=== PATIENT | female | born 1955 | race Caucasian/White ===

== ENCOUNTER 2021-11-23 12:51 | Outpatient (CLI) | payer MEDICARE, SELFPAY ==
--- NOTE | ~2021-11-23 | US_ITS ---
EXAMINATION: US soft tissue groin RT DATE: 11/23/2021 13:56 INDICATION: RIGHT INGUINAL HERNIA, WO OBSTRUCTION OR GANGRENE . TECHNIQUE: Grayscale and Doppler ultrasound images of the right groinwere obtained. COMPARISON: None. FINDINGS: There is some herniated fat as well a 5 cm long peristalsing loop of bowel extending into a hernia at the right groin. The hernia sac and contacts along the femoral vasculature and would favor a femoral hernia over inguinal hernia. IMPRESSION: Loop of peristalsing bowel within a hernia at the right groin and favor femoral hernia over inguinal hernia. Reviewed, dictated and finalized at location K.
== END 2021-11-23 12:52 | disposition home or self-care (01) ==
LOC: ANHIMG 12:58
PROVIDERS: PCP Nurse Practitioner Obstetrics & Gynecology; Visit Provider Nurse Practitioner Obstetrics & Gynecology
DX: K40.90 Unilateral inguinal hernia, without obstruction or gangrene, not specified as recurrent (principal)
CPT/HCPCS: 76882

== ENCOUNTER 2022-08-18 10:16 | Outpatient (CLI) | payer MEDICARE, SELFPAY ==
--- NOTE | 2022-08-18 10:21 | ECG_ITS ---
Measurements Intervals [place] Rate: 77 P: -75 [place]: 227 QRS: 61 QRSD: 86 T: 52 QT: 355 QTc: 402 Interpretive Statements SINUS RHYTHM BASELINE ARTIFACT- I, II, III, AVR, AVL, AVF, V1-V6 NORMAL ECG NO PREVIOUS ECG AVAILABLE FOR COMPARISON Electronically Signed On 08-18-2022 11:56:02 CDT by Dwain Vazquez D.O.
[2022-08-18 11:05] LABS: Anion Gap 9 mmol/L (8-16); Blood Urea Nitrogen 10 mg/dL (7-17); Calcium 9.2 mg/dL (8.4-10.2); Carbon Dioxide 26 mmol/L (22-30); Chloride 98 mmol/L (98-107); Estimated Glomerular Filt Rate > 60; Glucose 80 mg/dL (65-110); Sodium 133 mmol/L (137-145)
== END 2022-08-18 10:17 | disposition home or self-care (01) ==
LOC: ANHSURGERY 10:21
PROVIDERS: Anesthesiology; PCP Internal Medicine; Visit Provider Surgery
DX: Z51.81 Encounter for therapeutic drug level monitoring (principal); K40.90 Unilateral inguinal hernia, without obstruction or gangrene, not specified as recurrent; I10 Essential (primary) hypertension; Z01.818 Encounter for other preprocedural examination
CPT/HCPCS: 36415; 80048; 86850; 86900; 86901; 93005

== ENCOUNTER 2022-09-06 01:07 | Day surgery (SDC) | payer MEDICARE, SELFPAY ==
[2022-08-16 13:49] VITALS: BMI 16.6
--- NOTE | 2022-08-16 14:18 | PC.NURSE ---
Report to the Outpatient Waiting Room, entrance under the green pavilion located off [facility], at time _11:30AM on date __08/23/22 . Planned Procedure Time: __1:30PM . Time changes happen often and if your time is changed the preop area will call you the afternoon before. - You and your visitor will be asked to self-screen and do not enter if you have any COVID symptoms. - A mask is optional within the hospital at this time. Patients may have clear liquids (water, carbonated beverages, clear teas, apple juice) until 3 hours prior to surgery with a maximum of 20 ounces. - No food from midnight until time of surgery Take the following medications with a SIP of water the morning of surgery: _ADVAIR DISKUS, NEBULIZER TREATMENT & LORAZEPAM NEEDED___ DO NOT STOP ANY OF YOUR OTHER PRESCRIPTION MEDICATIONS PRIOR TO SURGERY ?EXCEPT THE FOLLOWING Medications to discontinue per physician __HOLD ALL VITAMINS/SUPPLEMENTS 3 DAYS PRE-OP Date to take last dose____08/19/22 Please no make-up, nail bengali, hairspray, perfume, deodorant, or body powder the day of surgery. No jewelry (including any body piercings) or valuables the day of surgery, leave them at home. Please take a shower or bath the night before, or the morning of, surgery with an antibacterial soap. Wear comfortable, loose fitting clothing. Children are encouraged to wear pajamas. - Jewelry must be removed prior to entering the operating room. Rings and piercings that are not removed may be cut off. - The hospital will not accept responsibility for valuables. - Please leave all valuables, including medications, at home the day of surgery. If you are going home after surgery, a licensed tilt tray driver must drive you home. - NO public transportation without another adult if you receive anesthesia. - We recommend that an adult stay with you for 24 hours following discharge. - We also recommend that you do not drive, make important decision, drink alcoholic beverages, or take any drugs that were not prescribed by your health care provider for at least 24 hours after your discharge time. Follow any additional instructions given to you from your surgeon. HIBICLENS SHOWER MORNING OF SURGERY If you or anyone in your household have experienced Covid symptoms in the past week, please notify your surgeon or the nurse liaison at the phone number below for possible testing. Telephone instructions given to __PATIENT and asked if any additional questions and then verbalized understanding. Patient advised to call surgeon office or pre surgery nurse liaison [phone] if any additional questions.
--- NOTE | 2022-08-22 15:18 | WPDANESEPPF ---
Anes - Initial Pre Proc Eval Procedure: Operation Date: 08/23/22 13:30 Proposed Procedures p Laparoscopic Right Inguinal Hernia Repair with Mesh, Davinci Assisted - Doni Gates DO Date/Time: 08/22/22 15:18 Surgeon: Doni Gates DO Pre Op Diagnosis: right Inguinal Hernia Patient Data Age: 67 Gender: F Height: 1.55 m Weight: 40 kg Allergies Allergy/AdvReac Type Severity Reaction Status Date / Time sulfamethoxazole Allergy Dyspnea / Verified 08/16/22 13:38 [From Bactrim] SOB trimethoprim [From Bactrim] Allergy Dyspnea / Verified 08/16/22 13:38 SOB Home Medications Medication Instructions Recorded Confirmed Type acetaminophen 500 mg tablet 1,000 mg PO Q6H PRN Pain 08/08/22 08/16/22 History (Tylenol Extra Strength) albuterol sulfate 90 mcg/actuation 1 inh inhalation Q4H PRN Dyspnea 08/08/22 08/16/22 History aerosol inhaler alendronate 70 mg tablet 70 mg PO WEEKLY 08/08/22 08/16/22 History docusate sodium 100 mg capsule 100 mg PO DAILY PRN Constipation 08/08/22 08/16/22 History (Colace) hydrochlorothiazide 12.5 mg tablet 12.5 mg PO DAILY 08/08/22 08/16/22 History lorazepam 0.5 mg tablet 0.5 mg PO BID PRN Anxiety 08/08/22 08/16/22 History amlodipine 10 mg tablet 10 mg PO HS 08/16/22 08/16/22 History calcium carb 300 mg-D3 800 1 tablet PO DAILY 08/16/22 08/16/22 History unit-mag ox 25 mg-type copyist 0.5 mg-yesenia-Zn tablet (Caltrate + D3 Plus Minerals) cholecalciferol (vitamin D3) 50 50 mcg PO DAILY 08/16/22 08/16/22 History mcg (2,000 unit) capsule famotidine 20 mg tablet (Pepcid AC) 20 mg PO DAILY PRN Indigestion 08/16/22 08/16/22 History fluticasone 250 mcg-salmeterol 50 1 inh inhalation BID 08/16/22 08/16/22 History mcg/dose blistr powdr for inhalation (Advair Diskus) ipratropium 0.5 mg-albuterol 3 mg 1 ml inhalation QID PRN Dyspnea 08/16/22 08/16/22 History (2.5 mg base)/3 mL nebulization soln ktjrmdtv-dyacbfk-vwsg-lutein tablet 1 tablet PO DAILY 08/16/22 08/16/22 History Results Review: All pre-operative results and documents have been reviewed as part of the pre-operative evaluation. [facility] Past Medical History Medical History (Updated 08/12/22 @ 15:55 by Doni Gates DO) Anxiety Breast cancer, left COPD (chronic obstructive pulmonary disease) Emphysema lung History of blood transfusion Hypertension Surgical History Surgical History S/P bilateral hip replacements S/P D&C (status post dilation and curettage) S/P mastectomy Family History Family History Father Hypertension Heart disease Mother Breast cancer Cervical cancer Heart disease Hypertension Unknown Heart disease Hypertension Cancer Social History Social History Smoking packs per day: 2 Smoking cigarettes per day: 40.0 Years smoked: 50 Smoking pack-years: 100.00 Smoking status: Current every day smoker Additional smoking assessment comments: REDUCING TO 1 PACK/DAY CURRENTLY Alcohol intake: never Substance use: never Living arrangements: with family Additional living arrangements comments: HUSB Spiritual care concerns: No Anes - Eval Final PreProcedure Day of Procedure 08/22/22 15:18 Patient weight: thin Heart: regular rate and rhythm Lungs: clear to auscultation and normal air movement Airway: Mallampati scale class II Neurological: alert and oriented Last oral intake: >/= 8 hours ASA classification: III Emergent: no Anesthetic plan: proceed Anesthesia type and monitoring: general ETT Results Review: All pre-operative results and documents have been reviewed as part of the pre-operative evaluation. Informed Consent: The patient's anesthetic plan and its attendant risks and benefits were discussed with the patient/family/POA. Questions were solic
--- NOTE | 2022-08-30 08:42 | PC.NURSE ---
Addendum entered by Gabriela Thornton RN 08/30/22 08:45: PATIENT GIVEN NEW DATE/TIME. NO CHANGE IN PMH, ALLERGIES OR MEDS. ALL PRE-OP INSTRUCTIONS REVIEWED, SHE RELAYS UNDERSTANDING. Original Note: Report to the Outpatient Waiting Room, entrance under the green pavilion located off [facility], at time __10:00AM on date __09/06/22 . Planned Procedure Time: __12:00PM . Time changes happen often and if your time is changed the preop area will call you the afternoon before. - You and your visitor will be asked to self-screen and do not enter if you have any COVID symptoms. - A mask is optional within the hospital at this time. Patients may have clear liquids (water, carbonated beverages, clear teas, apple juice) until 3 hours prior to surgery with a maximum of 20 ounces. - No food from midnight until time of surgery Take the following medications with a SIP of water the morning of surgery: __ADVAIR DISKUS, NEBULIZER TREATMENT NEEDED, LORAZEPAM NEEDED DO NOT STOP ANY OF YOUR OTHER PRESCRIPTION MEDICATIONS PRIOR TO SURGERY ?EXCEPT THE FOLLOWING Medications to discontinue per physician HOLD ALL VITAMINS/SUPPLEMENTS 3 DAYS PRE-OP Date to take last dose____09/02/22 Please no make-up, nail sammarinese, hairspray, perfume, deodorant, or body powder the day of surgery. No jewelry (including any body piercings) or valuables the day of surgery, leave them at home. Please take a shower or bath the night before, or the morning of, surgery with an antibacterial soap. Wear comfortable, loose fitting clothing. Children are encouraged to wear pajamas. - Jewelry must be removed prior to entering the operating room. Rings and piercings that are not removed may be cut off. - The hospital will not accept responsibility for valuables. - Please leave all valuables, including medications, at home the day of surgery. If you are going home after surgery, a licensed regional company truck driver must drive you home. - NO public transportation without another adult if you receive anesthesia. - We recommend that an adult stay with you for 24 hours following discharge. - We also recommend that you do not drive, make important decision, drink alcoholic beverages, or take any drugs that were not prescribed by your health care provider for at least 24 hours after your discharge time. Follow any additional instructions given to you from your surgeon. If you or anyone in your household have experienced Covid symptoms in the past week, please notify your surgeon or the nurse liaison at the phone number below for possible testing. Telephone instructions given to ___PATIENT and asked if any additional questions and then verbalized understanding. Patient advised to call surgeon office or pre surgery nurse liaison [phone] if any additional questions.
[2022-09-06] VITALS (10 sets, daily range): BP systolic 97–160; BP diastolic 55–83; PULSE 57–72; RESP 10–16; TEMP 36.7; O2SAT 92–100
--- NOTE | 2022-09-06 09:11 | WPDANESEPPF ---
Anes - Initial Pre Proc Eval Procedure: Operation Date: 09/06/22 12:00 Proposed Procedures p Laparoscopic Right Inguinal Hernia Repair with Mesh, Davinci Assisted - Doni Gates DO Date/Time: 09/06/22 09:11 Surgeon: Doni Gates DO Pre Op Diagnosis: right Inguinal Hernia Patient Data Age: 67 Gender: F Height: 1.55 m Weight: 40 kg Allergies Allergy/AdvReac Type Severity Reaction Status Date / Time sulfamethoxazole Allergy Dyspnea / Verified 08/30/22 08:38 [From Bactrim] SOB trimethoprim [From Bactrim] Allergy Dyspnea / Verified 08/30/22 08:38 SOB Home Medications Medication Instructions Recorded Confirmed Type acetaminophen 500 mg tablet 1,000 mg PO Q6H PRN Pain 08/08/22 08/30/22 History (Tylenol Extra Strength) albuterol sulfate 90 mcg/actuation 1 inh inhalation Q4H PRN Dyspnea 08/08/22 08/30/22 History aerosol inhaler alendronate 70 mg tablet 70 mg PO WEEKLY 08/08/22 08/30/22 History docusate sodium 100 mg capsule 100 mg PO DAILY PRN Constipation 08/08/22 08/30/22 History (Colace) hydrochlorothiazide 12.5 mg tablet 12.5 mg PO DAILY 08/08/22 08/30/22 History lorazepam 0.5 mg tablet 0.5 mg PO BID PRN Anxiety 08/08/22 08/30/22 History amlodipine 10 mg tablet 10 mg PO HS 08/16/22 08/30/22 History calcium carb 300 mg-D3 800 1 tablet PO DAILY 08/16/22 08/30/22 History unit-mag ox 25 mg-retail account executive 0.5 mg-yesenia-Zn tablet (Caltrate + D3 Plus Minerals) cholecalciferol (vitamin D3) 50 50 mcg PO DAILY 08/16/22 08/30/22 History mcg (2,000 unit) capsule famotidine 20 mg tablet (Pepcid AC) 20 mg PO DAILY PRN Indigestion 08/16/22 08/30/22 History fluticasone 250 mcg-salmeterol 50 1 inh inhalation BID 08/16/22 08/30/22 History mcg/dose blistr powdr for inhalation (Advair Diskus) ipratropium 0.5 mg-albuterol 3 mg 1 ml inhalation QID PRN Dyspnea 08/16/22 08/30/22 History (2.5 mg base)/3 mL nebulization soln dxpdhoyj-ogwbsjd-cqfz-lutein tablet 1 tablet PO DAILY 08/16/22 08/30/22 History Patient hx anesthesia problems: none Family hx anesthesia problems: none Results Review: All pre-operative results and documents have been reviewed as part of the pre-operative evaluation. [facility] Past Medical History Medical History (Updated 09/06/22 @ 09:11 by Santosh Gleason DO) Anxiety Asthma Breast cancer, left COPD (chronic obstructive pulmonary disease) Emphysema lung History of blood transfusion Hypertension Surgical History Surgical History S/P bilateral hip replacements S/P D&C (status post dilation and curettage) S/P mastectomy Family History Family History Father Hypertension Heart disease Mother Breast cancer Cervical cancer Heart disease Hypertension Unknown Heart disease Hypertension Cancer Social History Social History Smoking packs per day: 2 Smoking cigarettes per day: 40.0 Years smoked: 50 Smoking pack-years: 100.00 Smoking status: Current every day smoker Additional smoking assessment comments: REDUCING TO 1 PACK/DAY CURRENTLY Alcohol intake: never Substance use: never Living arrangements: with family Additional living arrangements comments: HUSB Spiritual care concerns: No Anes - Eval Final PreProcedure Day of Procedure 09/06/22 09:11 Patient weight: normal Heart: regular rate and rhythm Lungs: clear to auscultation Airway: Mallampati scale class II Neurological: alert and oriented Last oral intake: >/= 8 hours ASA classification: III Emergent: no Anesthetic plan: proceed Anesthesia type and monitoring: general ETT and standard monitoring Results Review: All pre-operative results and documents have been reviewed as part of the pre-operative evaluation. Informed Consent: The patient's anesthetic plan and its atten
[2022-09-06] MEDS: LACTATED RINGERS 1,000 ML 30 ML IV CONT ×2 (10:30→14:37)
[2022-09-06] MEDS: ACETAMINOPHEN 500 MG TABLET 1000 MG PO (10:56)
[2022-09-06] MEDS: KETOROLAC 15 MG/ML VIAL (*BKC) IV PUSH (10:57)
--- NOTE | 2022-09-06 12:35 | WPDHPUPDATE1 ---
History and Physical Update Update Date/Time: 09/06/22 12:35 History and Physical has been reviewed, including an updated exam of the patient. There are NO changes in the patient's condition. Risks, benefits, and alternatives have been discussed and questions answered. Patient agrees to proceed with procedure.
[2022-09-06] MEDS: ceFAZolin 2 GM/D5W 50 ML 2 GM/50 ML BAG IVPB (13:07)
[2022-09-06] MEDS: BUPIVACAINE/EPINEPHRINE 0.25% 50 ML VIAL 30 ML INFILTRATE (13:54)
--- NOTE | 2022-09-06 14:29 | W.PM.PROC2 ---
Procedure Note - Detailed Date of Procedure 09/06/22 Pre-op Diagnosis Right inguinal hernia Post-op Diagnosis Other (Bilateral femoral hernia) Procedure Performed Laparoscopic bilateral femoral hernia repair with mesh, da Deidre assisted Surgeon Doni Gates, DO Anesthesia General and Local (0.5% bupivacaine with epinephrine) Indications This is a 67-year-old woman who presented with a right groin bulge that she 1st noticed about 1 year ago. She has been having some discomfort with activity in this region for about the past year. She underwent right groin soft tissue ultrasound on 11/23/2021 and this showed a hernia in the right groin region with bowel peristalsing. She was just recently seen in the office and was found to have a reducible right inguinal hernia. Discussions were made with the patient about treatment options and decision was made to proceed with robotic assisted laparoscopic right inguinal hernia repair with mesh. Findings Upon entering the abdomen inspecting laparoscopically, the patient was found to have a right femoral hernia and left femoral hernia. Both hernias appeared reducible and were containing preperitoneal fat. A robotic transabdominal preperitoneal approach was used for repair of both hernias. Large right and left Bard 3DMax mid mesh is were placed overlying the entire myopectineal orifice on each side. No other abnormalities were noted. Description of Procedure Procedure as well as risks, benefits, and alternatives were discussed with the patient. Written consent was obtained and placed in chart prior to procedure. Patient was brought back to surgical suite. She was placed supine on operating table. Time-out was done to confirm patient and procedure. She was then intubated by Anesthesia Department. Her abdomen was prepped and draped in sterile fashion using chlorhexidine prep. 0.5% bupivacaine with epinephrine was infiltrated at each location for incision. A 12 millimeter transverse incision was made just superior to the umbilicus using a 15 blade scalpel. Blunt dissection was carried out down to the linea alba. A vertical incision was made at the linea alba using a 15 blade scalpel. The peritoneum was then bluntly entered. A 12 millimeter trocar was inserted and carbon dioxide insufflation was used to create a pneumoperitoneum. A camera was inserted and the abdominal cavity was inspected. The patient was placed in slight Trendelenburg position. An 8 millimeter incision was made on the right lateral abdomen and an 8 millimeter trocar was inserted under direct visualization. Another 8 millimeter incision was made in the left lateral abdomen and an 8 millimeter trocar was inserted under direct visualization. The robotic arms were brought up to the patient's bedside and secured to the ports. The camera and instruments were inserted. I then moved over to the robotic console and took control of the camera and instruments. After careful inspection of the abdominal cavity, I began scoring the peritoneum along the right lower quadrant using scissors with electrocautery. The preperitoneal plane was entered and this was carefully dissected caudally along the inferior epigastric vessels. Careful dissection with scissors with electrocautery and blunt dissection was used to continue this dissection. I dissected far enough laterally to allow for mesh placement, and also dissected medially to identify the pubic arch and Wang's ligament. The hernia sac was identified and carefully dissected posteriorly. The round ligament was also identified and the peritoneum was carefully dissected far enough posteriorly to allow for mesh placement. The round ligament was transected on the right side using electrocautery to allow for adequate mobilization and flat mesh placement. Once an adequate pocket was created, I then placed the mesh within the preperitoneal pocket and carefully unfolded it. The mesh was centered on the hernia defec
[2022-09-06] MEDS: oxyCODONE HCL (*CRX) 5 MG TAB IR PO (16:23)
== END 2022-09-06 17:42 | disposition home or self-care (01) ==
PROVIDERS: PCP Internal Medicine; Visit Provider Surgery
PROC: 8E0Y4CZ Robotic Assisted Procedure of Lower Extremity, Percutaneous Endoscopic Approach (ICD-10-PCS; CPT 49650; principal; 2022-09-06 12:00)
DX: K41.20 Bilateral femoral hernia, without obstruction or gangrene, not specified as recurrent (principal); J43.9 Emphysema, unspecified; I10 Essential (primary) hypertension; F41.9 Anxiety disorder, unspecified; Z85.3 Personal history of malignant neoplasm of breast; F17.210 Nicotine dependence, cigarettes, uncomplicated; Z79.51 Long term (current) use of inhaled steroids
CPT/HCPCS: 49659; S2900; 36415; 86850; 86900; 86901; A9270; C1781; J0690; J1100; J1170; J1885; J2250; J2405; J2704; J3010; J7120

== ENCOUNTER 2023-07-27 07:15 | Outpatient (CLI) | payer MEDICARE, SELFPAY ==
--- NOTE | ~2023-07-27 | PE_ITS ---
EXAMINATION: PET skull to mid thigh DATE: 07/27/2023 09:53 INDICATION: Multiple lung nodules. Left breast cancer. TECHNIQUE: 10.260 mCi of 18-fluorodeoxyglucose (18-FDG) was administered i.v. Low dose computed tomog shanita (CT) images were acquired from the base of the brain to the proximal thighs for attenuation cor rection and anatomic localization. Automated exposure control was employed. Dose-length product (DLP) was 494 mGy-cm. Positron emission tomography (PET) images were acquired in the same distribution. COMPARISON: None FINDINGS: Head/neck: There are no pathologically enlarged lymph nodes. There is increased activity in brown fat in the neck. Chest: There is moderate emphysema. There is mild scarring at the lung apices. There are centrilobula r nodules and tree-in-bud opacities in the inferior lungs predominantly involving the lower lobes and lingula, consistent with pneumonia. Calcified pulmonary nodules and calcified hilar lymph nodes are consistent with old granulomatous disease. There is a 12 mm nodule in left upper lobe with maximum MARTELL V of 4.1. No pleural effusion. The heart size is normal. There are coronary artery calcifications. No pericardial effusion. There is increased activity in brown fat in the chest. Abdomen/pelvis/proximal thighs: The liver and gallbladder are normal. Calcifications in the spleen ar e consistent with old granulomatous disease. The pancreas, adrenal glands, and left kidney are normal . There is a 2 mm stone in right kidney. There is diverticulosis of the colon without evidence of div erticulitis. There are dilated loops of small bowel. There is calcified atherosclerosis of the aorta and many of the other arteries. There are no pathologically enlarged lymph nodes. There is no free in traperitoneal fluid. There is a total right hip arthroplasty. IMPRESSION: 1. 12 mm nodule with increased activity in left lung upper lobe suspicious for primary bronchogenic c arcinoma. 2. Pneumonia involving the inferior lungs. 3. Moderate emphysema. 4. Dilated loops of small bowel, consistent with adynamic ileus versus partial small bowel obstructio n. Reviewed, dictated and finalized at location A. IMPRESSION: 1. 12 mm nodule with increased activity in left lung upper lobe suspicious for primary bronchogenic carcinoma. 2. Pneumonia involving the inferior lungs. 3. Moderate emphysema. 4. Dilated loops of small bowel, consistent with adynamic ileus versus partial small bowel obstruction.
[2023-07-27 07:55] LABS: Glucose Point of Care 95 mg/dl (65-105)
== END 2023-07-27 07:16 | disposition home or self-care (01) ==
PROVIDERS: PCP Internal Medicine; Visit Provider Internal Medicine Pulmonary Disease
DX: R91.8 Other nonspecific abnormal finding of lung field (principal); J43.9 Emphysema, unspecified; J18.9 Pneumonia, unspecified organism
CPT/HCPCS: 78815; A9552

== ENCOUNTER 2023-08-14 17:24 | Observation (INO) | payer MEDICARE, OTHER, SELFPAY ==
[2023-08-09 15:19] VITALS: BMI 16.2
--- NOTE | 2023-08-09 15:30 | PC.NURSE ---
Pre Radiology instructions Report to the outpatient lion n[facility] on date _08/14/23____ at time ___0900____ for procedure Time: _1100___ YOU MAY BE MONITORED AT HOSPITAL FOR UP TO 4 HOURS AFTER YOUR PROCEDURE. A visitor will be allowed to accompany the patient into the hospital. You and your visitor will be asked to self-screen and do not enter if you have any COVID symptoms. A mask is OPTIONAL within the hospital. Patients are to have no food or drink 6 hours prior to procedure time Driving will be restricted after the procedure, you must have a person to drive you home. Labs will be drawn in preop area and once reviewed, you will be taken to radiology area for procedure. When the procedure is completed, you will be taken to outpatient where you will be monitored for several hours. You may have one visitor in this area. Other than holding anti-coagulants, patient may take other medication(s) as scheduled. Prior to your appointment date patients are instructed to hold anti-coagulants after discussing with ordering provider to stop. If unable to discontinue anti-coagulants please notify radiologist. ? No aspirin or warfarin (Coumadin) for 7 days prior to the procedure. ? No clopidogrel (Plavix), ticagrelor (Brilinta), prasugrel (Effient) or dabigatran (Pradaxa) for 5 days prior to the procedure. ? No rivaroxaban (Xarelto), apixaban (Eliquis), dipyridamole (Aggrenox or Persantine) or cilostazol (Pletal) for 2 days prior to the procedure. Medications to discontinue per physician: __NONE Date to take last dose: Please leave all valuables, including medications, at home the day of procedure. The hospital will not accept responsibility for valuables. Wear comfortable, loose fitting clothing.? Follow any additional instructions given to you from ordering provider. Telephone instructions given to ____PATIENT and asked if any additional questions and then verbalized understanding. Patient advised to call scheduling provider office or registration scheduling [phone] if any additional questions.
[2023-08-14] VITALS (22 sets, daily range): BP systolic 119–169; BP diastolic 54–85; PULSE 69–88; RESP 14–22; TEMP 36.2–37.4; O2SAT 90–100; BMI 16.3
--- NOTE | ~2023-08-14 | XR_ITS ---
EXAMINATION: XR chest 1V DATE: 08/14/2023 11:51 INDICATION: Post left lung biopsy TECHNIQUE: frontal view of the chest was obtained. COMPARISON: PET/CT dated 07/27/2023 FINDINGS: There is a small left pneumothorax. Nodular opacity at the left upper lung zone corresponding to the biopsied nodule and likely small amount of postbiopsy hemorrhage. There is emphysema with mild biapic al pleural-parenchymal scarring. Additional mild atelectasis/scarring at the bilateral lung bases. Sm all calcified nodule left lower lung zone consistent with old granulomatous disease. No pulmonary celeste ma, pleural effusion or left-sided pneumothorax. The cardiomediastinal silhouette is normal. Atherosc lerotic calcification at the bilateral carotid bulbs. IMPRESSION: 1. Small iatrogenic left pneumothorax. 2. Nodular opacity left upper lung zone correspond to the biopsied nodule and small amount of surroun ding postbiopsy hemorrhage. Reviewed, dictated and finalized at location A. IMPRESSION: 1. Small iatrogenic left pneumothorax. 2. Nodular opacity left upper lung zone correspond to the biopsied nodule and s mall amount of surrounding postbiopsy hemorrhage.
--- NOTE | ~2023-08-14 | XR_ITS ---
EXAMINATION: XR chest 1V portable DATE: 08/15/2023 15:20 INDICATION: Left pneumothorax status post chest tube removal. TECHNIQUE: A single frontal view of the chest was obtained. COMPARISON: Chest single view at 1:06 PM. FINDINGS: The lungs are hyperexpanded with lucencies, consistent with emphysema. There is mild scarri ng at the lung apices. There is a nodule in left lung upper lobe. There are mild airspace opacities i n the lower lung zones. No pleural effusion or pneumothorax. The heart size is normal. There is soft tissue gas in the left chest wall. IMPRESSION: 1. No pneumothorax status post chest tube removal. 2. Emphysema. 3. Stable airspace opacities in the lower lung zones, consistent with pneumonia. 4. Nodule in left lung upper lobe suspicious for primary bronchogenic carcinoma. Reviewed, dictated and finalized at location E. IMPRESSION: 1. No pneumothorax status post chest tube removal. 2. Emphysema. 3. Stable airspace opacities in the lower lung zones, consistent with pneumonia . 4. Nodule in left lung upper lobe suspicious for primary bronchogenic carcinoma .
--- NOTE | ~2023-08-14 | CT_ITS ---
EXAMINATION: [facility] [place] DATE: 08/14/2023 15:30 INDICATION: Pneumothorax TECHNIQUE: The procedure including the risks and benefits was discussed with the patient. Risks discu ssed included bleeding infection and allergic reaction. The patient understood the risks and benefits and agreed to proceed. After being transferred to the CT scanner the patient began to rapidly decomp ensated with worsening chest pain, tachypnea and decreasing oxygen saturations. Oxygen supplementatio n by nasal cannula was increased to 10 L with oxygen saturations stabilizing at approximately 90%. In expeditious manner the skin overlying the left infraclavicular region at the intercostal space betwe en the anterior second and third ribs was prepped and draped in usual sterile fashion. Anesthetic wa s administered with 1% lidocaine subcutaneously. An 18-gauge trochar needle was inserted into the pne umothorax utilizing CT guidance. A J-wire was advanced through the needle with position confirmed by CT. Utilizing Seldinger technique the needle was removed over the wire the tract was dilated to 8 Ata nch. An 8.5 Croatian pigtail catheter was placed over the wire and the loop formed and locked. After co nfirmation of positioning by CT the wire and stiffener were removed and the pneumothorax was manually aspirated with rapid improvement in the patient's symptoms. Patient's oxygen saturations also rapidl y increased to 98-100% on 2 L nasal cannula. Final images demonstrated significant decrease in size o f a now small left pneumothorax. The catheter was stitched to the skin with suture. A sterile dressin g was applied including Vaseline impregnated gauze positioned around the access site. Additional adhe sive fixation device was applied. The patient was then transferred to the recovery unit. There were n o immediate complications. The dose-length product was 125.03 mGy-cm. FINDINGS: CT images demonstrate a moderate-sized left pneumothorax with background of moderate severi ty emphysema. The previously biopsied nodule and minimal surrounding hemorrhage can be seen in the le ft upper lobe. Subsequent images demonstrate placement of a chest tube with distal loop coiled overly ing the anterolateral aspect of the apical left upper lobe. Final images demonstrate significant impr ovement in a now small pneumothorax. IMPRESSION: 1. Successful CT-guided left chest tube placement. 2. The chest tube will be managed by Dr. Stubbs. Reviewed, dictated and finalized at location A.
--- NOTE | ~2023-08-14 | XR_ITS ---
Portable chest x-ray Comparison: 08/14/2023 Clinical History: Pneumothorax Findings: Interval placement of a smallbore left-sided chest tube with essentially complete resoluti on of left pneumothorax. COPD pattern is unchanged. Cardiomediastinal silhouette is stable. Osseous structures intact. There is left subcutaneous emphysema. Impression: Status post left chest tube placement, with essentially complete resolution of left pneumothorax. COPD. Left-sided subcutaneous emphysema now present. Reviewed, dictated and finalized at location . Impression: Status post left chest tube placement, with essentially complete resolution of left pneumothorax. COPD. Left-sided subcutaneous emphysema now present.
--- NOTE | ~2023-08-14 | XR_ITS ---
EXAMINATION: XR chest 1V portable DATE: 08/14/2023 13:03 INDICATION: One hour post percutaneous left lung biopsy TECHNIQUE: frontal view of the chest was obtained. COMPARISON: Chest radiograph dated 08/14/2023 FINDINGS: There is been interval increase in size of the still small left pneumothorax. Emphysema with unchange d mild biapical pleural-parenchymal scarring. Mild streaky atelectasis/scarring at the bilateral lung bases. Persistent nodular opacity left upper lung zone corresponding to the biopsied pulmonary nodul e and small amount of associated pulmonary hemorrhage. There are couple calcified nodule left lung co nsistent with old granulomatous disease. No pleural effusion or right-sided pneumothorax. Cardiomedia stinal silhouette remains normal and midline. IMPRESSION: 1. Gradual increase in size of a still small left pneumothorax post op severe left upper lobe nodule which is concerning for malignancy. 2. Emphysema with mild apical pleural-parenchymal scarring and mild bibasilar atelectasis/scarring. Reviewed, dictated and finalized at location A. IMPRESSION: 1. Gradual increase in size of a still small left pneumothorax post op severe l eft upper lobe nodule which is concerning for malignancy. 2. Emphysema with mild apical pleural-parenchymal scarring and mild bibasilar a telectasis/scarring.
--- NOTE | ~2023-08-14 | XR_ITS ---
EXAMINATION: XR chest 1V portable DATE: 08/15/2023 13:11 INDICATION: Pneumothorax follow-up TECHNIQUE: frontal view of the chest was obtained. COMPARISON: Chest radiograph dated 08/15/2023 FINDINGS: A left chest tube is unchanged along the lateral margin of the left apex. No pneumothorax or pleural effusion. Emphysema with mild biapical pleural-parenchymal scarring. Unchanged mild atelectasis/scarr ing along the lung bases. Small calcified nodule left lower lung zone consistent with old granulomato us disease. The cardiomediastinal silhouette is normal. Unchanged left chest wall subcutaneous emphys sharon in the infraclavicular and axillary regions. IMPRESSION: 1. Unchanged left chest tube with no residual pneumothorax or other acute cardiopulmonary disease. 2. Emphysema. 3. Unchanged septations emphysema at the anterolateral left upper chest wall. Reviewed, dictated and finalized at location A. IMPRESSION: 1. Unchanged left chest tube with no residual pneumothorax or other acute cardi opulmonary disease. 2. Emphysema. 3. Unchanged septations emphysema at the anterolateral left upper chest wall.
--- NOTE | ~2023-08-14 | XR_ITS ---
EXAMINATION: XR chest 1V portable DATE: 08/14/2023 14:14 INDICATION: Pneumothorax post percutaneous left lung biopsy TECHNIQUE: frontal view of the chest was obtained. COMPARISON: Chest radiograph dated 08/14/2023 at 12:59 PM FINDINGS: There has been continued gradual increase in size of the still small left pneumothorax. Emphysema wit h mild biapical pleural-parenchymal scarring and mild atelectasis/scarring at the bilateral lung base s. No pulmonary edema, pleural effusion or right-sided pneumothorax. The cardiomediastinal silhouette is normal and remains midline. IMPRESSION: 1. Continued slow increase in size of a still small left pneumothorax. Patient's oxygen requirement h as however continued also increase. This was discussed with the patient who was amenable to proceedin g with CT-guided chest tube placement. Reviewed, dictated and finalized at location A. IMPRESSION: 1. Continued slow increase in size of a still small left pneumothorax. Patient' s oxygen requirement has however continued also increase. This was discussed wi th the patient who was amenable to proceeding with CT-guided chest tube placeme nt.
--- NOTE | ~2023-08-14 | CT_ITS ---
EXAMINATION: CT biopsy lung w/imaging DATE: 08/14/2023 12:25 INDICATION: Multiple nodules of lung TECHNIQUE: The procedure including the risks and benefits was discussed with the patient. Risks discu ssed included infection, approximately 1/20 risk of symptomatic hemorrhage beyond mild hemoptysis, ap proximately 1/3 risk of pneumothorax, and approximately 1/10 risk of pneumothorax severe enough to wa rrant chest tube placement. The patient understood the risks and agreed to proceed. The patient was p laced spine. The skin overlying the infraclavicular anterior left chest was prepped and draped in st erile fashion. Anesthetic was administered with 1% lidocaine subcutaneously. A 19 gauge outer needl e was advanced under CT guidance to the lesion of interest. A 20 gauge core biopsy needle was then us ed to obtain 3 core biopsy specimens. In order to minimize risk of pneumothorax, 5 mL of the patient' s own blood was aspirated from the peripheral IV and injected through the guide needle during removal of the guide needle from the lung. The entry site was cleaned and dressed. There is a small pneumoth orax on the initial postprocedure radiograph with the patient remaining asymptomatic. Over the course of the next 3 hours the pneumothorax gradually increased in size requiring chest tube placement with significant improvement in the pneumothorax and the patient's symptoms. Details of the chest tube pl acement been dictated separately. The dose-length product was 114.12 mGy-cm. FINDINGS: CT images demonstrate the outer needle tip adjacent to a 1.3 cm left upper lobe nodule. IMPRESSION: 1. Successful CT-guided biopsy of the 1.3 cm left upper lobe nodule of concern. 2. Small post biopsy pneumothorax which gradually increased in size and symptoms requiring subsequent successful chest tube placement. Reviewed, dictated and finalized at location A. IMPRESSION: 1. Successful CT-guided biopsy of the 1.3 cm left upper lobe nodule of concern. 2. Small post biopsy pneumothorax which gradually increased in size and symptom s requiring subsequent successful chest tube placement.
[2023-08-14 09:51] LABS: Mean Platelet Volume 9.7 fl (7.4-10.4); Platelet Count Result 276 k/mm3 (150-375)
[2023-08-14 10:03] LABS: Prothrombin Time 13.1 Seconds (11.1-14.7)
[2023-08-14] MEDS: MORPHINE SULFATE (*CRX) 2 MG/ML INJ 1 MG IV PUSH (13:56)
--- NOTE | 2023-08-14 14:11 | SUR.PHASEII ---
Arrangements being made for patient to have chest tube placed by Dr. Saxena in radiology. Shahrzad PACU Undercoater and Cb Nursing Mold Construction Supervisor aware. Patient's at bedside, also updated on plan of care for patient.
--- NOTE | 2023-08-14 14:25 | SUR.PHASEII ---
Addendum entered by Clara Carlson RN 08/14/23 14:28: Patient's to radiology with patient. Original Note: 1425- Patient take to radiology by alex Reece for chest tube placement.
[2023-08-14] MEDS: fentaNYL CITRATE INJ (*CRX) 100 MCG/2 ML VIAL 25 MCG IV PUSH ×4 (15:39→16:05)
--- NOTE | 2023-08-14 15:41 | SUR.PHASEII ---
into Phase II at 1152 system would not allow into pacu time
--- NOTE | 2023-08-14 18:20 | PM.IMHP ---
H&P: HPI History of Present Illness Date/Time: 08/14/23 18:20 Chief Complaint: Pneumothorax Narrative: This is a 68-year-old female with a significant past medical history of anxiety, asthma, breast cancer status post mastectomy, COPD, emphysema, hypertension who originally presented to the hospital for CT-guided lung biopsy of a left upper lobe nodule. Patient states that she gets lung scans done routinely and a nodule appeared on her latest lung scan prompting her to come in for the procedure. During the procedure patient sustained a small pneumothorax which gradually increased in size requiring chest tube placement. She denies any fever, chills, nausea, vomiting, diarrhea, abdominal pain, chest pain. She does report shortness of breath which is better since the chest tube has been placed. Review of Systems Review of Systems: All systems reviewed & are unremarkable except as noted in HPI and below Constitutional: Constitutional: Reports as per HPI and Reports no additional constitutional complaints Eyes: Eyes: Reports as per HPI and Reports no additional eye complaints ENT: Reports system reviewed and no additional complaints, except as documented and Reports as per HPI Cardiovascular: Cardiovascular: Reports as per HPI and Reports no additional cardiovascular complaints Respiratory: Respiratory: Reports as per HPI and Reports no additional respiratory complaints Gastrointestinal: Gastrointestinal: Reports as per HPI and Reports no additional gastrointestinal complaints Genitourinary: Genitourinary: Reports no additional female genitourinary complaints and Reports as per HPI Musculoskeletal: Musculoskeletal: Reports no additional musculoskeletal complaints and Reports as per HPI Integumentary/Breasts: Skin/Breast: Reports system reviewed and no additional complaints, except as docu and Reports as per HPI Neurologic: Reports system reviewed and no additional complaints, except as documented and Reports as per HPI Psychiatric: Psychiatric: Reports no additional psychiatric complaints and Reports as per HPI [facility] Past Medical History Medical History Anxiety Asthma Breast cancer, left COPD (chronic obstructive pulmonary disease) Emphysema lung History of blood transfusion Hypertension Surgical History Surgical History Hx of inguinal hernia repair lap rt ing hernia rep w/ mesh, da oli asst performed 09/06/22 S/P bilateral hip replacements S/P D&C (status post dilation and curettage) S/P mastectomy Family History Family History Father Hypertension Heart disease Mother Breast cancer Cervical cancer Heart disease Hypertension Unknown Heart disease Hypertension Cancer Social History Social History Smoking packs per day: 2 Smoking cigarettes per day: 40.0 Years smoked: 50 Smoking pack-years: 100.00 Smoking status: Current every day smoker Additional smoking assessment comments: REDUCING TO 1 PACK/DAY CURRENTLY Alcohol intake: never Substance use: never Do You Feel Safe in your Home?: Yes Lack of Transportation: No Lack of Food: Never True Current Housing: I Have Housing Concerned About Future Housing: No Difficulty Paying Gas/Electric Bills: No Difficulty Paying for Meds: No Currently Unemployed: No Education: High School Diploma/GED Difficulty w/ Childcare or Family Care: No Living arrangements: with family Additional living arrangements comments: HUSB Spiritual care concerns: No Meds Home Medications and Allergies Home Medications Medication Instructions Recorded Confirmed Type acetaminophen 500 mg tablet 1,000 mg PO Q6H PRN Pain 08/08/22 08/14/23 History (Tylenol Extra Strength) albuterol sulfate 90 mcg/actuation 1
[2023-08-14] MEDS: HYDROcodone/acetaminophen (*CRX) 5-325 MG TABLET 1 TAB PO (18:39)
--- NOTE | 2023-08-14 20:31 | PC.NURSE ---
Dr. Stubbs informed of bubbling of chest tube pleuravac. Informed that all connections are reinforced, dressing is reinforced, breath sounds good. Dr. Stubbs states that's OK don't worry about it .
[2023-08-14] MEDS: MORPHINE SULFATE (*CRX) 2 MG/ML INJ IV PUSH (20:51)
[2023-08-14] MEDS: amLODIPine BESYLATE 5 MG TABLET 10 MG PO (20:52)
[2023-08-14] MEDS: LORazepam (*CRX) 0.5 MG TABLET PO (20:53)
[2023-08-15] VITALS (18 sets, daily range): BP systolic 137–150; BP diastolic 55–66; PULSE 61–81; RESP 14–20; TEMP 35.9–37.1; O2SAT 85–100; BMI 16.3
[2023-08-15] MEDS: HYDROcodone/acetaminophen (*CRX) 5-325 MG TABLET 1 TAB PO ×3 (01:40→14:02)
--- NOTE | 2023-08-15 01:50 | PC.NURSE ---
08/14 @ 0125, Chest tube continued to consistently bubble. When left arm placed upright and back bubbling ceases. Two pillows under arm for support
[2023-08-15 05:24] LABS: Basophils Percent Auto 0.2 % (0.2-1.2); Eosinophils Absolute Auto 0.1 K/mm3 (0-0.3); Eosinophils Percent Auto 1.1 % (0-4.4); Hematocrit 33.8 % (37.0-47.0); Hemoglobin 11.3 g/dL (12.0-15.0); Immature Granulocyte Absolute 0.03 K/mm3 (0.00-0.031); Immature Granulocyte Percent A 0.3 % (0-0.5); Lymphocytes Absolute Auto 1.67 K/mm3 (0.9-3.2); Lymphocytes Percent Auto 18.9 % (18.3-44.2); Mean Corpuscular HGB Conc 33.4 g/dl (32-36); Mean Corpuscular Hemoglobin 31.9 pg (26-34); Mean Corpuscular Volume 95.5 fl (80-100); Mean Platelet Volume 9.8 fl (7.4-10.4); Monocytes Absolute Auto 0.7 K/mm3 (0.1-0.6); Monocytes Percent Auto 7.7 % (2.6-8.5); Neutrophils Absolute Auto 6.3 K/mm3 (1.3-6.7); Neutrophils Percent Auto 71.8 % (45.5-73.1); Platelet Count Result 260 k/mm3 (150-375); Red Blood Count 3.54 M/mm3 (4.2-5.4); Red Cell Distribution Width 13.3 % (11.5-14.5); White Blood Count 8.8 K/mm3 (4.5-10.0)
[2023-08-15 05:37] LABS: Alanine Aminotransferase 15 U/L (6-35); Albumin Level 3.8 g/dL (3.5-5.1); Alkaline Phosphatase 84 U/L (38-126); Anion Gap 7 mmol/L (4-12); Aspartate Amino Transferase 25 U/L (14-36); Bilirubin,Total 0.6 mg/dL (0.2-1.3); Blood Urea Nitrogen 9 mg/dL (7-17); Calcium 8.8 mg/dL (8.4-10.2); Carbon Dioxide 27 mmol/L (22-30); Chloride 97 mmol/L (98-107); Estimated CRCL calculation 56 ml/min; Estimated Glomerular Filt Rate > 60; Glucose 92 mg/dL (65-110); Magnesium 1.7 mg/dL (1.6-2.3); Potassium 3.9 mmol/L (3.4-5.0); Sodium 131 mmol/L (137-145)
[2023-08-15] MEDS: MULTIVITAMINS /C LUTEIN (CENTRUM SILVER) TABLET *BKC 1 TAB PO (08:38)
[2023-08-15] MEDS: CHOLECALCIFEROL 1,000 UNITS TABLET 2000 UNITS PO (08:38)
[2023-08-15] MEDS: FAMOTIDINE 20 MG TABLET PO (08:38)
[2023-08-15] MEDS: FLUTICASONE/SALMETEROL 115-21 MCG INHALER 1 PUFF 2 PUFF INHALATION ×2 (09:30→20:49)
--- NOTE | 2023-08-15 09:32 | P.PNIM_ITS ---
Progress Note: A&P Assessment and Plan (1) Pneumothorax after biopsy: Code(s): J95.811 - Postprocedural pneumothorax Status: Acute Assessment and Plan: 08/14/23: * Patient had a CT guided lung nodule biopsy and sustained a pneumothorax requiring chest tube placement. * Lung nodule suspicious for metastatic disease and sent for cytology * Chest tube to -20 cm suction * Will obtain a chest x-ray in the morning * General surgery consulted for chest tube management 08/15/23: * Chest x-ray showing left-sided subcutaneous emphysema with near complete resolution of left pneumothorax * General surgery following,and placed chest tube to water seal today * Will get another chest x-ray in the morning and hopefully discontinue chest tube at that time. * Currently still on 2L NC * Continue to wean for a saturation greater than 92%. (2) COPD (chronic obstructive pulmonary disease): Code(s): J44.9 - Chronic obstructive pulmonary disease, unspecified Status: Acute Assessment and Plan: 08/14/23: * Continue albuterol inhaler and DuoNeb p.r.n. * Advair on hold as it is non formulary * Currently on 2 L nasal cannula * Continue to wean for O2 saturation greater than 92% 08/15/23: * Continue to wean O2 (3) Tobacco use: Code(s): Z72.0 - Tobacco use Status: Acute Assessment and Plan: 08/14/23: * Current every day smoker * Patient has cut down to 1 pack per day * Has a 50+ year smoking history * Nicotine patch ordered 08/15/23: * No change to treatment plan (4) Hypertension: Qualifiers: Hypertension type: primary hypertension Qualified Code(s): I10 - Essential (primary) hypertension Code(s): I10 - Essential (primary) hypertension Status: Acute Assessment and Plan: 08/14/23: * Blood pressure ranging 133/62 to 167/61 * Continue amlodipine 08/15/23: * No change to current treatment plan (5) Breast cancer, left: Code(s): C50.912 - Malignant neoplasm of unspecified site of left female breast Status: Acute Assessment and Plan: 08/14/23: * Status post mastectomy in 2020 at [facility], not currently undergoing any active treatment 08/15/23: * No change Time Spent With Patient Time with patient: 25 - 35 minutes Subjective Date/time seen: 08/15/23 09:32 Interval history: Interval history: This is a 68-year-old female with a significant past medical history of anxiety, asthma, breast cancer status post mastectomy, COPD, emphysema, hypertension who originally presented to the hospital for CT-guided lung biopsy of a left upper lobe nodule. Patient states that she gets lung scans done routinely and a nodule appeared on her latest lung scan prompting her to come in for the procedure. During the procedure patient sustained a small pneumothorax which gradually increased in size requiring chest tube placement. She denies any fever, chills, nausea, vomiting, diarrhea, abdominal pain, chest pain. She does report shortness of breath which is better since the chest tube has been placed. 08/15/23: Patient remains on 2L NC. No new complaints today. CXR today showing subcutaneous emphysema with essentially complete resolution of left pneumothorax. Labs today show hemoglobin of 11.3, sodium 131, otherwise unremarkable. Review of Systems Review of Systems: All systems reviewed & are unremarkable except as noted in HPI and below Constitutional: Constitutional: Reports as per HPI and Reports no additional constitutional complaints
--- NOTE | 2023-08-15 09:32 | PM.IMPN ---
Progress Note: A&P Assessment and Plan (1) Pneumothorax after biopsy: Code(s): J95.811 - Postprocedural pneumothorax Status: Acute Assessment and Plan: 08/14/23: Patient had a CT guided lung nodule biopsy and sustained a pneumothorax requiring chest tube placement. Lung nodule suspicious for metastatic disease and sent for cytology Chest tube to -20 cm suction Will obtain a chest x-ray in the morning General surgery consulted for chest tube management 08/15/23: Chest x-ray showing left-sided subcutaneous emphysema with near complete resolution of left pneumothorax General surgery following,and placed chest tube to water seal today Will get another chest x-ray in the morning and hopefully discontinue chest tube at that time. Currently still on 2L NC Continue to wean for a saturation greater than 92%. (2) COPD (chronic obstructive pulmonary disease): Code(s): J44.9 - Chronic obstructive pulmonary disease, unspecified Status: Acute Assessment and Plan: 08/14/23: Continue albuterol inhaler and DuoNeb p.r.n. Advair on hold as it is non formulary Currently on 2 L nasal cannula Continue to wean for O2 saturation greater than 92% 08/15/23: Continue to wean O2 (3) Tobacco use: Code(s): Z72.0 - Tobacco use Status: Acute Assessment and Plan: 08/14/23: Current every day smoker Patient has cut down to 1 pack per day Has a 50+ year smoking history Nicotine patch ordered 08/15/23: No change to treatment plan (4) Hypertension: Qualifiers: Hypertension type: primary hypertension Qualified Code(s): I10 - Essential (primary) hypertension Code(s): I10 - Essential (primary) hypertension Status: Acute Assessment and Plan: 08/14/23: Blood pressure ranging 133/62 to 167/61 Continue amlodipine 08/15/23: No change to current treatment plan (5) Breast cancer, left: Code(s): C50.912 - Malignant neoplasm of unspecified site of left female breast Status: Acute Assessment and Plan: 08/14/23: Status post mastectomy in 2020 at [facility], not currently undergoing any active treatment 08/15/23: No change Time Spent With Patient Time with patient: 25 - 35 minutes Subjective Date/time seen: 08/15/23 09:32 Interval history: Interval history: This is a 68-year-old female with a significant past medical history of anxiety, asthma, breast cancer status post mastectomy, COPD, emphysema, hypertension who originally presented to the hospital for CT-guided lung biopsy of a left upper lobe nodule. Patient states that she gets lung scans done routinely and a nodule appeared on her latest lung scan prompting her to come in for the procedure. During the procedure patient sustained a small pneumothorax which gradually increased in size requiring chest tube placement. She denies any fever, chills, nausea, vomiting, diarrhea, abdominal pain, chest pain. She does report shortness of breath which is better since the chest tube has been placed. 08/15/23: Patient remains on 2L NC. No new complaints today. CXR today showing subcutaneous emphysema with essentially complete resolution of left pneumothorax. Labs today show hemoglobin of 11.3, sodium 131, otherwise unremarkable. Review of Systems Review of Systems: All systems reviewed & are unremarkable except as noted in HPI and below Constitutional: Constitutional: Reports as per HPI and Reports no additional constitutional complaints Eyes: Eyes: Reports as per HPI and Reports no additional eye complaints ENT: Reports system reviewed and no additional complaints, except as documented and Reports as per HPI Cardiovascular: Cardiovascular: Reports as per HPI and Reports no additional cardiovascular complaints Respiratory: Respiratory: Reports as per HPI and Reports no additional respiratory complaints Gastrointestinal: Gastrointestinal: Reports as per HPI and Reports no additi
--- NOTE | 2023-08-15 10:52 | PM.CNGS ---
Assessment and Plan Assessment and plan (1) Pneumothorax after biopsy: Code(s): J95.811 - Postprocedural pneumothorax Status: Acute Assessment and Plan: Iatrogenic left pneumothorax following a CT-guided biopsy of left lung nodule. Chest tube is in good position with chest x-ray this morning showing no residual pneumothorax. No air leak on exam. Will put the chest tube to water seal today. Repeat chest x-ray later today or tomorrow morning to re-evaluate. (2) Lung nodule: Code(s): R91.1 - Solitary pulmonary nodule Status: Acute Assessment and Plan: CT-guided biopsy of left upper lobe lung nodule. (3) COPD (chronic obstructive pulmonary disease): Code(s): J44.9 - Chronic obstructive pulmonary disease, unspecified Status: Acute (4) Tobacco use: Code(s): Z72.0 - Tobacco use Status: Acute Plan I have discussed the patient's case and plan of care with Dr. Stubbs. History of Present Illness Consult details Consult date: 08/15/23 Reason for consult: other (Chest tube Management, pneumothorax) Requesting physician: Alejandrina Montenegro, PAT Narrative: This is a 68-year-old woman with a history of breast cancer status post mastectomy, COPD, emphysema, asthma, and multiple other medical problems, who presented to the hospital for CT-guided lung biopsy of a left upper lobe nodule yesterday. She has routine lung scans and a nodule was found on her most recent scan, which prompted the biopsy. During the procedure, she was found to have a small pneumothorax which gradually increased in size requiring chest tube placement. While in Radiology, she reports increasing shortness of breath and difficulty breathing. She was directly admitted for the pneumothorax and management of the chest tube. She is now seen in surgical consultation for chest tube management. She reports resolution of her shortness of breath since the chest tube was placed. Chest x-ray this morning shows no residual pneumothorax with chest tube in good position. Review of Systems Review of Systems: All systems reviewed & are unremarkable except as noted in HPI and below PMFSH Past Medical History Medical History Anxiety Asthma Breast cancer, left COPD (chronic obstructive pulmonary disease) Emphysema lung History of blood transfusion Hypertension Surgical History Surgical History Hx of inguinal hernia repair lap rt ing hernia rep w/ mesh, da oli asst performed 09/06/22 S/P bilateral hip replacements S/P D&C (status post dilation and curettage) S/P mastectomy Family History Family History Father Hypertension Heart disease Mother Breast cancer Cervical cancer Heart disease Hypertension Unknown Heart disease Hypertension Cancer Social History Social History Smoking packs per day: 2 Smoking cigarettes per day: 40.0 Years smoked: 50 Smoking pack-years: 100.00 Smoking status: Current every day smoker Additional smoking assessment comments: REDUCING TO 1 PACK/DAY CURRENTLY Alcohol intake: never Substance use: never Do You Feel Safe in your Home?: Yes Lack of Transportation: No Lack of Food: Never True Current Housing: I Have Housing Concerned About Future Housing: No Difficulty Paying Gas/Electric Bills: No Difficulty Paying for Meds: No Currently Unemployed: No Education: High School Diploma/GED Difficulty w/ Childcare or Family Care: No Living arrangements: with family Additional living arrangements comments: [facility] Spiritual care concerns: No Meds Home Medications and Allergies Home Medications Medication Instructions Recorded Confirmed Type acetaminophen 500 mg tablet 1,000 mg PO Q6H PRN Pain 08/08/22 08/14/23 Histor
--- NOTE | 2023-08-15 17:27 | PM.DS ---
DS: Admitting Diagnosis Discharge Date 08/16/23 Admitting Diagnosis pneumothorax after biopsy COPD Tobacco use Hypertension Left breast cancer DS: Discharge Diagnosis Discharge Diagnosis (1) Pneumothorax after biopsy: Code(s): J95.811 - Postprocedural pneumothorax Status: Acute (2) COPD (chronic obstructive pulmonary disease): Code(s): J44.9 - Chronic obstructive pulmonary disease, unspecified Status: Acute (3) Tobacco use: Code(s): Z72.0 - Tobacco use Status: Acute (4) Hypertension: Qualifiers: Hypertension type: primary hypertension Qualified Code(s): I10 - Essential (primary) hypertension Code(s): I10 - Essential (primary) hypertension Status: Acute (5) Breast cancer, left: Code(s): C50.912 - Malignant neoplasm of unspecified site of left female breast Status: Acute DS: Summary Hospital Course Reason for hospitalization: pneumothorax after biopsy COPD Tobacco use Hypertension Left breast cancer Hospital Course: This is a 68-year-old female with a significant past medical history of anxiety, asthma, breast cancer status post mastectomy, COPD, emphysema, hypertension who originally presented to the hospital for CT-guided lung biopsy of a left upper lobe nodule. Patient states that she gets lung scans done routinely and a nodule appeared on her latest lung scan prompting her to come in for the procedure. During the procedure patient sustained a small pneumothorax which gradually increased in size requiring chest tube placement. She denies any fever, chills, nausea, vomiting, diarrhea, abdominal pain, chest pain. She does report shortness of breath which is better since the chest tube has been placed. Chest tube placed to water seal, CXR in the afternoon shown complete resolution of pneumothorax. Chest tube removed by General surgery team on 08/15/23. She was still on 2L NC which was weaned off however when she was up ambulating, her O2 saturations dropped into the 80's. We did a home O2 eval and she is requiring 2L with activity. Patient is stable for discharge at this time. She will need to follow up with PCP in 1 week. Final diagnosis: Pneumothorax after biopsy Status at Discharge Cognitive/behavioral status at discharge: Alert and oriented x3 Functional status at discharge: independent ambulation Overall status at discharge: patient is progressing back to baseline Time Spent with Patient Time attestation: Total time spent providing and/or coordinating discharge services: Time spent: Greater than 30 minutes Exam Narrative: General: In no acute distress, malnourished Cardiac: Normal S1 and S2. RRR, No murmur, gallops or friction rubs, peripheral pulses intact. Respiratory: Lungs clear to auscultation, no adventitious lung sounds noted, currently on room air Skin: dressing in place left chest wall DS: Data Data Completed and Pending Completed studies during hospitalization: CXR x6 Lung biopsy CT Pending studies at discharge: None Labs on day of discharge: Labs from last 24 hours 08/15/23 04:51 WBC 8.8 RBC 3.54 L Hgb 11.3 L Hct 33.8 L MCV 95.5 MCH 31.9 MCHC 33.4 RDW 13.3 Plt Count 260 MPV 9.8 Immature Gran % (Auto) 0.3 Neut % (Auto) 71.8 Lymph % (Auto) 18.9 [place] % (Auto) 7.7 Eos % (Auto) 1.1 Baso % (Auto) 0.2 Lymph # (Auto) 1.67 [place] # (Auto) 0.7 H Eos # (Auto) 0.1 Baso # (Auto) 0.0 Abs Immat Gran (auto) 0.03 Absolute Neuts (auto) 6.3 Absolute Nucleated RBC 0.000 Nucleated RBC % 0.0 Sodium 131 L Potassium 3.9 Chloride 97 L Carbon Dioxide 27 Anion Gap 7 BUN 9 Creatinine 0.50 L Estim Creat Clear Calc 56 Estimated GFR > 60 Glucose 92 Calcium 8.8 Magnesium 1.7 Total Bilirubin 0.6 AST 25 ALT 15 Alkaline Phosphatase 84 Total Protein 7.0 Albumin 3.8 Procedures/Treatments: Chest tube insertion Discharge Plan Discharge Attending physician
[2023-08-15] MEDS: ONDANSETRON INJ 4 MG/2 ML VIAL IV PUSH (18:20)
--- NOTE | 2023-08-15 18:39 | PCRCNOTE ---
PT. REQUIRES 2LPM OXYGEN WITH ACTIVITY. PT. ONLY WANTS A POC, NO TANKS. SETTING PT. UP WITH [facility]. SPOKE WITH REP CABALLERO AND HE STATES THEY WILL NOT BE ABLE TO DELIVER POC UNTIL THE MORNING. PROVIDER AND RN AWARE.
--- NOTE | 2023-08-15 18:46 | HOMEO2EVAL ---
Evaluation was performed at [facility] Home Oxygen Evaluation RC: Home Oxygen (O2) Evaluation Start: 08/15/23 17:44 Freq: ONCE Status: Active Protocol: RPE Activity Type Activity Date Activity User E-sign Co-sign Detail Recorded Client Recorded Date Recorded By Document 08/15/23 17:58 [email or web address] [email or web address] 08/15/23 18:35 HRB Document 08/15/23 18:02 [email or web address] [email or web address] 08/15/23 18:37 HRB Document 08/15/23 18:03 [email or web address] [email or web address] 08/15/23 18:38 HRB Document 08/15/23 18:04 [email or web address] [email or web address] 08/15/23 18:39 HRB Document 08/15/23 18:12 [email or web address] [email or web address] 08/15/23 18:39 HRB 08/15/23 08/15/23 08/15/23 17:58 18:02 18:03 Home O2 Evaluation [Oxygen] -Test Phase Resting Exercise Exercise -Oxygen Delivery Room Air Room Air Nasal Cannula -Oxygen Flow Rate (L/min) 1 -Fraction of Inspired Oxygen (%) 24 [Pulse Oximetry] -Pulse Oximetry (90-100 %) 93 85 L 86 L [Pulse Rate] -Pulse Rate (60-100 beats/min) 67 74 72 [Comments] -Home Oxygen Evaluation Comments Placed on 1L [Charges] -Evaluation Charges O2 Evaluation by 08/15/23 08/15/23 18:04 18:12 Home O2 Evaluation [Oxygen] -Test Phase Exercise Resting -Oxygen Delivery Nasal Cannula Nasal Cannula -Oxygen Flow Rate (L/min) 2 2 -Fraction of Inspired Oxygen (%) 28 28 [Pulse Oximetry] -Pulse Oximetry (90-100 %) 91 94 [Pulse Rate] -Pulse Rate (60-100 beats/min) 74 74 [Comments] -Home Oxygen Evaluation Comments [Charges] -Evaluation Charges
[2023-08-15] MEDS: amLODIPine BESYLATE 5 MG TABLET 10 MG PO (20:12)
[2023-08-16] VITALS (11 sets, daily range): BP systolic 138–163; BP diastolic 55–64; PULSE 67–80; RESP 16–18; TEMP 36.4–36.7; O2SAT 86–98
[2023-08-16 05:59] LABS: Basophils Percent Auto 0.2 % (0.2-1.2); Eosinophils Absolute Auto 0.1 K/mm3 (0-0.3); Hematocrit 33.9 % (37.0-47.0); Hemoglobin 11.4 g/dL (12.0-15.0); Immature Granulocyte Absolute 0.05 K/mm3 (0.00-0.031); Immature Granulocyte Percent A 0.4 % (0-0.5); Lymphocytes Percent Auto 9.7 % (18.3-44.2); Mean Corpuscular HGB Conc 33.6 g/dl (32-36); Mean Corpuscular Hemoglobin 32.2 pg (26-34); Mean Corpuscular Volume 95.8 fl (80-100); Mean Platelet Volume 9.9 fl (7.4-10.4); Monocytes Absolute Auto 0.9 K/mm3 (0.1-0.6); Monocytes Percent Auto 7.1 % (2.6-8.5); Neutrophils Absolute Auto 10.2 K/mm3 (1.3-6.7); Neutrophils Percent Auto 81.6 % (45.5-73.1); Platelet Count Result 246 k/mm3 (150-375); Red Blood Count 3.54 M/mm3 (4.2-5.4); Red Cell Distribution Width 13.1 % (11.5-14.5); White Blood Count 12.4 K/mm3 (4.5-10.0)
[2023-08-16 06:14] LABS: Alanine Aminotransferase 13 U/L (6-35); Albumin Level 3.8 g/dL (3.5-5.1); Alkaline Phosphatase 84 U/L (38-126); Anion Gap 6 mmol/L (4-12); Aspartate Amino Transferase 23 U/L (14-36); Bilirubin,Total 0.5 mg/dL (0.2-1.3); Blood Urea Nitrogen 10 mg/dL (7-17); Calcium 8.8 mg/dL (8.4-10.2); Carbon Dioxide 28 mmol/L (22-30); Chloride 97 mmol/L (98-107); Estimated CRCL calculation 56 ml/min; Estimated Glomerular Filt Rate > 60; Glucose 101 mg/dL (65-110); Sodium 131 mmol/L (137-145)
[2023-08-16] MEDS: FLUTICASONE/SALMETEROL 115-21 MCG INHALER 1 PUFF 2 PUFF INHALATION (08:21)
[2023-08-16] MEDS: MULTIVITAMINS /C LUTEIN (CENTRUM SILVER) TABLET *BKC 1 TAB PO (09:24)
[2023-08-16] MEDS: HYDROcodone/acetaminophen (*CRX) 5-325 MG TABLET 1 TAB PO (09:24)
[2023-08-16] MEDS: CHOLECALCIFEROL 1,000 UNITS TABLET 2000 UNITS PO (09:25)
[2023-08-16] MEDS: FAMOTIDINE 20 MG TABLET PO (09:25)
--- NOTE | 2023-08-16 09:48 | HOMEO2EVAL ---
Evaluation was performed at [facility] Home Oxygen Evaluation RC: Home Oxygen (O2) Evaluation Start: 08/15/23 17:44 Freq: ONCE Status: Active Protocol: RPE Activity Type Activity Date Activity User E-sign Co-sign Detail Recorded Client Recorded Date Recorded By Document 08/15/23 17:58 [email or web address] [email or web address] 08/15/23 18:35 HRB Document 08/15/23 18:02 [email or web address] [email or web address] 08/15/23 18:37 HRB Document 08/15/23 18:03 [email or web address] [email or web address] 08/15/23 18:38 HRB Document 08/15/23 18:04 [email or web address] [email or web address] 08/15/23 18:39 HRB Document 08/15/23 18:12 [email or web address] [email or web address] 08/15/23 18:39 HRB Document 08/16/23 09:00 [email or web address] [email or web address] 08/16/23 09:48 DJO Document 08/16/23 09:05 [email or web address] [email or web address] 08/16/23 09:48 DJO Document 08/16/23 09:10 [email or web address] [email or web address] 08/16/23 09:48 DJO Document 08/16/23 09:15 [email or web address] [email or web address] 08/16/23 09:48 DJO Document 08/16/23 09:25 [email or web address] [email or web address] 08/16/23 09:48 DJO 08/15/23 08/15/23 08/15/23 17:58 18:02 18:03 Home O2 Evaluation [Oxygen] -Test Phase Resting Exercise Exercise -Oxygen Delivery Room Air Room Air Nasal Cannula -Oxygen Flow Rate (L/min) 1 -Fraction of Inspired Oxygen (%) 24 [Pulse Oximetry] -Pulse Oximetry (90-100 %) 93 85 L 86 L [Pulse Rate] -Pulse Rate (60-100 beats/min) 67 74 72 [Comments] -Home Oxygen Evaluation Comments Placed on 1L [Charges] -Evaluation Charges O2 Evaluation by 08/15/23 08/15/23 08/16/23 18:04 18:12 09:00 Home O2 Evaluation [Oxygen] -Test Phase Exercise Resting Resting -Oxygen Delivery Nasal Cannula Nasal Cannula Room Air -Oxygen Flow Rate (L/min) 2 2 -Fraction of Inspired Oxygen (%) 28 28 [Pulse Oximetry] -Pulse Oximetry (90-100 %) 91 94 86 L [Pulse Rate] -Pulse Rate (60-100 beats/min) 74 74 70 [Comments] -Home Oxygen Evaluation Comments [Charges] -Evaluation Charges 08/16/23 08/16/23 08/16/23 09:05 09:10 09:15 Home O2 Evaluation [Oxygen] -Test Phase Resting Resting Exercise -Oxygen Delivery Nasal Cannula Nasal Cannula Nasal Cannula -Oxygen Flow Rate (L/min) 1 2 2 -Fraction of Inspired Oxygen (%) [Pulse Oximetry] -Pulse Oximetry (90-100 %) 88 L 91 90 [Pulse Rate] -Pulse Rate (60-100 beats/min) 68 68 75 [Comments] -Home Oxygen Evaluation Comments [Charges] -Evaluation Charges 08/16/23 09:25 Home O2 Evaluation [Oxygen] -Test Phase Resting -Oxygen Delivery Nasal Cannula -Oxygen Flow Rate (L/min) 2 -Fraction of Inspired Oxygen (%) [Pulse Oximetry] -Pulse Oximetry (90-100 %) 91 [Pulse Rate] -Pulse Rate (60-100 beats/min) 67 [Comments] -Home Oxygen Evaluation Comments [Charges] -Evaluation Charges
--- NOTE | 2023-08-16 11:13 | PM.PNGS ---
Progress Note: A&P Assessment and Plan (1) Pneumothorax after biopsy: Code(s): J95.811 - Postprocedural pneumothorax Status: Acute Assessment and Plan: resolved, chest tube removed yesterday, ok to dc home from surgical standpoint Subjective Subjective Date/Time Seen: 08/16/23 11:13 Interval history: no acute issues overnight, requiring some supplemental O2 with activity, no increasing dyspnea s/p CT removal Review of Systems Review of Systems: All systems reviewed & are unremarkable except as noted in HPI and below Exam Const: General: cooperative, comfortable and no acute distress Resp: Auscultation: diminished lung sounds Cardio: Rate: regular rate Rhythm: regular rhythm GI: Inspection: normal to inspection Objective Data Vital Signs Vital Signs: Vital Signs - 24 hr 08/15/23 12:00 08/15/23 12:29 08/15/23 15:30 Temperature 37.1 C Pulse Rate 67 69 Respiratory Rate 18 Blood Pressure 137/66 Pulse Oximetry 96 98 Oxygen Delivery Room Air Oxygen Flow Rate Fraction of Inspired Oxygen 08/15/23 16:00 08/15/23 17:58 08/15/23 18:02 Temperature Pulse Rate 68 67 74 Respiratory Rate Blood Pressure Pulse Oximetry 93 85 L Oxygen Delivery Room Air Room Air Oxygen Flow Rate Fraction of Inspired Oxygen 08/15/23 18:03 08/15/23 18:04 08/15/23 18:12 Temperature Pulse Rate 72 74 74 Respiratory Rate Blood Pressure Pulse Oximetry 86 L 91 94 Oxygen Delivery Nasal Cannula Nasal Cannula Nasal Cannula Oxygen Flow Rate 1 2 2 Fraction of Inspired Oxygen 24 28 28 08/15/23 20:00 08/15/23 20:49 08/15/23 20:00 Temperature 36.9 C Pulse Rate 81 75 75 Respiratory Rate 18 14 Blood Pressure 140/55 L Pulse Oximetry 85 L Oxygen Delivery Oxygen Flow Rate Fraction of Inspired Oxygen 08/15/23 20:00 08/16/23 00:00 08/16/23 00:00 Temperature 36.4 C Pulse Rate 79 69 Respiratory Rate 18 Blood Pressure 163/64 H Pulse Oximetry 98 Oxygen Delivery Room Air Oxygen Flow Rate Fraction of Inspired Oxygen 08/16/23 04:00 08/16/23 04:00 08/16/23 08:21 Temperature 36.5 C Pulse Rate 71 75 Respiratory Rate 18 Blood Pressure 143/55 H Pulse Oximetry 97 86 L Oxygen Delivery Room Air Oxygen Flow Rate Fraction of Inspired Oxygen 08/16/23 08:25 08/16/23 09:00 08/16/23 09:05 Temperature Pulse Rate 70 68 Respiratory Rate Blood Pressure Pulse Oximetry 92 86 L 88 L Oxygen Delivery Nasal Cannula Room Air Nasal Cannula Oxygen Flow Rate 2 1 Fraction of Inspired Oxygen 08/16/23 09:10 08/16/23 09:15 08/16/23 09:25 Temperature Pulse Rate 68 75 67 Respiratory Rate Blood Pressure Pulse Oximetry 91 90 91 Oxygen Delivery Nasal Cannula Nasal Cannula Nasal Cannula Oxygen Flow Rate 2 2 2 Fraction of Inspired Oxygen Intake/Output Intake/Output: Intake & Output 08/13/23 08/14/23 08/15/23 08/16/23 23:59 23:59 23:59 23:59 Intake Total 200 2920 580 Output Total 0 Balance 200 2920 580 Meds/Results Medications: Active Medications Generic Name Dose Route Start Last Admin Trade Name Freq PRN Reason Stop Dose Admin Acetaminophen 650 mg 08/14/23 18:16 Acetaminophen 325 Mg Tablet PO Q4H PRN Mild Pain (1-3) or Fever Hydrocodone Bitart/Acetaminophen 1 tab 08/14/23 18:16 08/16/23 09:24 Hydrocodone/Acetaminophen (*Crx) 5-325 Mg Tablet PO 1 tab Q4H PRN Administration Moderate Pain (4-6) Albuterol 1 puff 08/14/23 18:17 Albuterol Sulfate (*Sp) Aerosol 1 Puff INHALATION Q4HRT PRN Dyspnea Albuterol/Ipratropium 3 ml 08/14/23 18:17 Ipratropium 0.5 Mg/Albuterol Sulfate 2.5 Mg Ampul.Neb 3 Ml INHALATION QID PRN Dyspnea Alendronate Sodium 70 mg 08/21/23 06:30 Alendronate Sodium 70 Mg Tablet PO Mo@0630 BROOKS Amlodipine Besylate 10 mg 08/14/23 21:00 08/15/23 20:12 Amlodipine Besylate 5 Mg Tablet PO
== END 2023-08-16 13:25 | disposition home or self-care (01) ==
LOC: ANH2MED 17:39
PROVIDERS: Nurse Practitioner Acute Care; Radiology Diagnostic Radiology; Admitting Provider Internal Medicine; PCP Internal Medicine; Referring Provider Internal Medicine Pulmonary Disease; Visit Provider Student in an Organized Health Care Education/Training Program
PROC: (CPT 77012; principal; 2023-08-14 11:00)
DX: J84.10 Pulmonary fibrosis, unspecified (principal); J95.811 Postprocedural pneumothorax; J43.9 Emphysema, unspecified; J44.9 Chronic obstructive pulmonary disease, unspecified; I10 Essential (primary) hypertension; F17.210 Nicotine dependence, cigarettes, uncomplicated; Z79.51 Long term (current) use of inhaled steroids; Z79.84 Long term (current) use of oral hypoglycemic drugs; Y83.8 Other surgical procedures as the cause of abnormal reaction of the patient, or of later complication, without mention of misadventure at the time of the procedure
CPT/HCPCS: 32408; 32550; 36415; 71045; 75989; 80053; 83735; 85025; 85049; 85610; 88305; 88312; 94618; 94640; A9270; C1729; C1769; G0378; G0379; J2270; J2405; J3010

== ENCOUNTER 2024-08-01 10:24 | Outpatient (CLI) | payer MEDICARE, SELFPAY ==
--- NOTE | ~2024-08-01 | PE_ITS ---
EXAMINATION: PET skull to mid thigh DATE: 08/01/2024 12:44 INDICATION: Multiple pulmonary nodules TECHNIQUE: Blood glucose level was 90 recorded. 10.32 mCi of 18-fluorodeoxyglucose (18-FDG) was admin istered i.v. Low dose computed tomography (CT) images were acquired from the base of the brain to the proximal thighs for attenuation correction and anatomic localization. Positron emission tomography ( PET) images were acquired in the same distribution beginning 60 minutes after injection. Images inclu ding fused PET/CT images were reconstructed in axial, coronal, and sagittal planes. Automated exposur e control technique was employed. The dose-length product was 427.19mGy-cm. COMPARISON: None FINDINGS: Head/neck: There is symmetric increased activity in the oral cavity, palatine tonsils, anterior cervical paraspi nal muscles, laryngeal muscles and ocular muscles without CT correlate, likely physiologic. No pathol ogically enlarged cervical lymphadenopathy or suspicious foci of increased FDG uptake in the visualiz ed head or neck. Chest: Severe emphysema with pleural parenchymal scarring at the periphery of the upper lungs. And a few sma ll bilateral calcified pulmonary nodules along with calcified right hilar and mediastinal lymph nodes consistent with old granulomatous disease. No interval change in chronic tree-in-bud opacities with multiple small centrilobular nodules at the posterior basilar aspect of the bilateral lower lobes con sistent with sequela of chronic infection. There is been interval increase in size of a now 1.6 x 1.2 cm, previously 1.4 x 0.9 cm left upper lobe nodule which previously demonstrated mild increased upta ke with maximal SUV of 4.1 which is significantly decreased now 1.5. 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 Heart size is normal. N o pericardial effusion. Atherosclerotic coronary artery calcifications. Thoracic aorta is normal in c aliber. No pathologically enlarged or FDG avid thoracic lymphadenopathy. Abdomen/pelvis/proximal thighs: Physiologic renal accumulation and excretion of FDG activity in the kidneys, bladder and along portio ns of ureters. Couple nonobstructing right renal stones the larger measuring 2 mm. Normal degree and heterogenous pattern of increased uptake throughout the liver without radiologic correlate or dominan t FDG avid lesion. The gallbladder, pancreas, spleen and bilateral adrenal glands are normal. Mild up take scattered throughout the bowels without radiologic correlate, also likely physiologic. There is calcified atherosclerosis of the aorta and many of the other arteries. No other abnormal foci of incr eased FDG uptake or pathologically enlarged lymphadenopathy in the abdomen, pelvis or proximal thighs . 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 No suspicious lytic, blastic or abno rmally FDG avid bone lesions. Small amount of likely extravasated activity at the right forearm. IMPRESSION: 1. Slight increase in size but resolution of prior of increased FDG activity in a now 1.6 x 1.2 cm le ft upper lobe nodule with intervening biopsy consistent with benign necrotizing granuloma. Consider a dditional 6 month follow-up low-dose noncontrast chest CT. 2. Interval appearance of severe emphysema and changes of chronic pneumonia at the posterior basilar aspect of the bilateral lower lobes. Reviewed, dictated and finalized at location A. IMPRESSION: 1. Slight increase in size but resolution of prior of increased FDG activity in a now 1.6 x 1.2 cm left upper lobe nodule with intervening biopsy consistent w ith benign necrotizing granuloma. Consider additional 6 month follow-up low-dos e noncontrast chest CT. 2. Interval appearance of severe emphysema and changes of chronic pneumonia at the posterior basilar aspect of the bilateral lower lobes.
[2024-08-01 10:56] LABS: Glucose Point of Care 99 mg/dl (65-105)
== END 2024-08-01 10:25 | disposition home or self-care (01) ==
PROVIDERS: PCP Internal Medicine; Visit Provider Internal Medicine Pulmonary Disease
DX: R91.8 Other nonspecific abnormal finding of lung field (principal)
CPT/HCPCS: 78815; A9552